=== PATIENT | female | born 1970 | race Caucasian/White ===

== ENCOUNTER 2020-07-30 06:25 | Day surgery (SDC) | payer BC ==
[~2020-07-30] VITALS: Ht 152.4 cm; Wt 65.0 kg
--- NOTE | ~2020-07-30 | OR ---
[facility] [address] [place], [place] [address] Draft DATE OF OPERATION: 07/30/2020 SURGEON: Casi Plummer MD PREOPERATIVE DIAGNOSIS: Colon screening. POSTOPERATIVE DIAGNOSIS: Small polyp of ascending colon. PROCEDURE: Total colonoscopy to cecum with cold morcellation polypectomy x1. ANESTHESIA: Intravenous sedation, fentanyl 200 mcg and Versed 12 mg. INDICATION: This 50-year-old white woman is a patient of Dr. Mitchell. She has hypothyroidism, which was apparently difficult to replete currently, but is referred for screening colonoscopy at this time. She is clinically euthyroid. She has never had colonoscopy in the past. She has no family history of colon cancer that she is aware of. She is symptom-free. The risks of bleeding, infection, and perforation related to colonoscopy was reviewed with her. She understands and wished to proceed. FINDINGS: The colon was somewhat redundant and difficult to pass ultimately to the cecum, but it was accomplished. She had an excellent prep. The only finding of note was a small polyp of the right colon, which was excised with cold morcellation technique. DESCRIPTION OF PROCEDURE: The patient was brought to the endoscopy suite and placed in lateral decubitus position given intravenous sedation to the point of slurred speech and nystagmus. Digital rectal examination was normal. An Olympus video colonoscope was passed in the rectum and manipulated throughout the colon. Passage beyond the transverse and hepatic flexure was challenging. Abdominal wall stabilization was used not to therefore, she was placed in the supine position. This allowed for passage of the scope ultimately to the cecum with good visualization of the ileocecal valve and appendiceal orifice. The scope was withdrawn and a few cm from the ileocecal valve, there was a small probably adenomatous polyp. PATIENT NAME: MYRNA CAVAZOS OPERATIVE REPORT DATE OF : [birth year] REPORT #: [id number] PHYSICIAN: CASI PLUMMER MD PCP: NAIMA CARRERA MD REPORT IS CONFIDENTIAL AND NOT TO BE RELEASED WITHOUT AUTHORIZATION [facility] [address], [place] [address] Draft This was excised with cold morcellation technique. The scope was further withdrawn and the remaining colon appeared entirely normal. Retroflexed view was normal as well. The scope was removed. The patient was taken to the recovery room in good condition. CONCLUDING DIAGNOSIS: Polyps x1. PLAN: Repeat colonoscopy in 5 years sooner if clinically indicated. She will return to the ongoing care of Dr. Mitchell and others managing her hypothyroidism at this time. MD KOLBY Caba/ESTRELLA /[id number] cc: Marcella Mitchell MD Copies: MARCELLA MITCHELL MD ~ PATIENT NAME: MYRNA CAVAZOS BELLA OPERATIVE REPORT DATE OF : [birth year] REPORT #: [id number] PHYSICIAN: CASI PLUMMER MD PCP: NAIMA CARRERA MD REPORT IS CONFIDENTIAL AND NOT TO BE RELEASED WITHOUT AUTHORIZATION
[~2020-07-30 06:25] MED LIST: ARMOUR THYROID60 MG PO; ESTRACE0.5 MG PO; LEVOTHYROXINE0.5 GM MISC; PROGESTERONE200 MG PO; SYNTHROID125 MCG PO; TRAZODONE HCL100 MG PO
[2020-07-30] MEDS ORDERED: SYNTHROID50 MCG PO (06:51)
--- NOTE | 2020-07-30 08:29 | NUR ---
07/30/20 0829 Enma Mascorro 0819- PT ARRIVES TO PACU AWAKE AND TALKING. PT REPORTS 4/10 ABD CRAMPING, DENIES NAUSEA. PT EDUCATED TO ROLL TO HER LEFT SIDE AND BRING HER KNEES UP TO HELP PASS FLATUS.
--- NOTE | 2020-07-30 10:39 | NUR ---
PT TAKEN TO SCOPE .DAUGHTER TEVIN IN -CONNECTED WITH HER FIRST SCOPE FOR PT, ENCOURAGED HER TO KEEP AN EYE ON PT FOLLOWING DC. SHE ACKNOWLEDGED, ALL QUESTONS ANSWERED. GAVE BLESSING WILL FOLLOW
--- NOTE | 2020-08-02 11:37 | PATH ---
[facility] [address] [place], [place] [address] Signed SPECIMEN(S): A ASCENDING POLYP SPECIMEN SOURCE: A. ASCENDING POLYP CLINICAL HISTORY: Preop: Screening colonoscopy, family history of colon CA. Postop: Right colon polyp. MICROSCOPIC DESCRIPTION: Histologic sections of all submitted blocks are examined by light microscopy. These findings, together with the gross examination, support the pathologic diagnosis. FINAL PATHOLOGIC DIAGNOSIS: Colon, ascending, polyp, polypectomy: - Tubular adenoma. - Negative for high-grade dysplasia or malignancy. NAL:cml:C2NR GROSS DESCRIPTION: The specimen, labeled "KG," and designated on the requisition "ascending colon polypectomy," is received in formalin and consists of one fragment of pink-fisher tissue (0.3 x 0.2 x 0.2 cm). The specimen is submitted entirely in cassette (A1). AC (under the direct supervision of a pathologist) The Gross Description was prepared using a voice recognition system. The report was reviewed for accuracy; however, sound-alike word errors, addition and/or deletions may occur. If there is any question about this report, please contact Client Services. PERFORMING LABORATORY: The technical component was performed by [facility], [address] [place] [id number] (Motor Carrier Inspector: Kellie West MD; CLIA# [id number]). Professional interpretation was performed by [facility], [address] [address] (CLIA# [id number]). Diagnostician: Génesis Bishop MD Pathologist Electronically Signed 08/02/2020 PATIENT NAME: MYRNA CAVAZOS PATHOLOGY DATE OF : [birth year] REPORT #: [id number] PHYSICIAN: LUCIO PATHOLOGY PCP: NAIMA CARRERA MD REPORT IS CONFIDENTIAL AND NOT TO BE RELEASED WITHOUT AUTHORIZATION [address] [address] Signed Copies: ~ PATIENT NAME: MYRNA CAVAZOS PATHOLOGY DATE OF : [birth year] REPORT #: [id number] PHYSICIAN: IVETTEYTE PATHOLOGY PCP: NAIMA CARRERA MD REPORT IS CONFIDENTIAL AND NOT TO BE RELEASED WITHOUT AUTHORIZATION
== END 2020-07-30 09:10 | disposition home or self-care (01) ==
LOC: DS 06:25 → OPS 06:25 → DS 08:00 → OPS 08:00 → DS 08:30 → OPS 09:10
PROVIDERS: ATTEND Surgery
PROC: 0DBK8ZX Excision of Ascending Colon, Via Natural or Artificial Opening Endoscopic, Diagnostic (ICD-10-PCS; principal; 2020-07-30 06:45)
DX: Z12.11 Encounter for screening for malignant neoplasm of colon (principal); D12.2 Benign neoplasm of ascending colon; E06.3 Autoimmune thyroiditis; E03.9 Hypothyroidism, unspecified; F17.210 Nicotine dependence, cigarettes, uncomplicated; Z88.5 Allergy status to narcotic agent; Z79.890 Hormone replacement therapy; Z79.899 Other long term (current) drug therapy; Z80.0 Family history of malignant neoplasm of digestive organs
CPT/HCPCS: 99153; G0500; J2250; J3010; J7121

== ENCOUNTER 2021-09-01 07:50 | Day surgery (SDC) | payer BC ==
[~2021-09-01] VITALS: Ht 152.4 cm; Wt 53.6 kg
[~2021-09-01 07:50] MED LIST changes: +CELEXA40 MG PO; +SYNTHROID50 MCG PO
--- NOTE | 2021-09-01 11:14 | NUR ---
09/01/21 1114 Marika Moody 1045 - RECIEVED TP TO PACU WITH OPA IN PLACE, RESPIRATIONS EVEN AND UNLABORED. HERNESTO METAL FABRICATOR APPRENTICE REPORTS REACTIVE AIRWAY. 1049 - OPA REMOVED, PT COUGHS WITH GOOD EFFORT. MASK WITH O2 AT 8L IN PLACE. 1052 - SIMPLE MASK REMOVED PT MAINTIANS O2 > 90% ON ROOM AIR. SHE IS AWAKE AND TALKING.
[2021-09-01] MEDS ORDERED: IBUPROFEN600 MG PO ×2 (11:32)
[2021-09-01] MEDS ORDERED: ACETAMINOPHEN500 MG PO ×2 (11:32)
[2021-09-01] MEDS ORDERED: OXYCODON-ACETA1 EAC2 PO ×2 (11:32)
--- NOTE | 2021-09-01 11:45 | NUR ---
PATIENT BACK TO ROOM 12 FROM PACU ON . RECEIVED REPORT FROM DAKOTA ASHLEY. PATIENT IS AWAKE. VSS. RR EVEN AND UNLABORED. RATES PAIN 4/10, DECLINES MEDICATION AT THIS TIME. DENIES NAUSEA. DRESSING IS CLEAN, DRY, AND INTACT. PROVIDED PATIENT WITH WATER AND CRACKERS. BEAR HUGGER TURNED ON FOR PATIENT. MOM AND DAUGHTER AT BEDSIDE. CALL LIGHT WITHIN REACH.
--- NOTE | 2021-09-01 12:50 | NUR ---
1250-PATIENT UP TO RESTROOM WITH 1 RN ASSIST. GAIT STEADY AND TOLERATED WELL. PATIENT VOIDED 300ML. 1300-PATIENT RESTING IN BED. VSS. RR EVEN AND UNLABORED. RATES PAIN 4/10 AND DENIES NAUSEA. DRESSING IS CLEAN, DRY, AND INTACT. PROVIDED PATIENT WITH NEW WARM BLANKETS. MOM AND DAUGHTER IN ROOM. CALL LIGHT WITHIN REACH. 1310-PAIN MEDICATION GIVEN PER EMAR.
--- NOTE | 2021-09-01 14:13 | NUR ---
PATIENT RESTING IN BED. VSS. RR EVEN AND UNLABORED. RATES PAIN 2/10. DENIES NAUSEA. DRESSING IS CLEAN, DRY, AND INTACT. MOM AND DAUGHTER AT BEDSIDE. CALL LIGHT WITHIN REACH. PATIENT WOULD LIKE TO GO HOME. 1415-PATIENT TEMP BTW 99.6-100.2. DISCUSSION WITH DR. PLUMMER AND HE STATES TEMP IS FINE AND TO ENCOURAGE DEEP BREATHING.
--- NOTE | 2021-09-01 14:30 | NUR ---
PROVIDED PATIENT WITH DISCHARGE INSTRUCTIONS WITH PATIENT MOM AND DAUGHTER IN THE ROOM. PATIENT VERBALIZED UNDERSTANDING AND ALL QUESTIONS WERE ANSWERED. AGAIN DISCUSSED THE IMPORTANCE OF DEEP BREATHING AND TO CALL DR. PLUMMER WITH A FEVER OF 101. RATES PAIN 2/10. PATIENT AMBULATES TO WHELLCHAIR, GAIT STEADY. PROVIDED RIDE TO FRONT OF HOSPITAL WHERE HER DAUGHTER WAS WAITING WITH THE CAR.
--- NOTE | 2021-09-01 16:06 | NUR ---
1606-PHONE CALL FROM PATIENT'S DAUGHTER. STATES SHABANA HAS A HARD SWOLLEN AREA UP TO HER UMBILICUS. STATES THE SIZE OF A BASEBALL. STATES VERY PAINFUL. 1610-PHONE CALL TO DR. PLUMMER REGARDING THE SITUATION. DR. PLUMMER WOULD LIKE PATIENT TO COME [facility] NOW. 1611-PHONE CALL BACK TO PATIENT'S DAUGHTER WITH DR. PLUMMER'S INSTRUCTIONS. DAUGHTER STATES PATIENT IS IN PAIN AND COULD THEY LIFE FLIGHTER HER FROM [place] TO [place]. ADVISED AGAINST THIS. THE DAUGHTER STATES PATIENT HAS AMUBLANCE INSURANCE AND MAYBE THEY WILL SEND HER THAT WAY. EXPLAINED THEN SHE WOULD GO THROUGH THE ER TO DAY SURGERY BUT TO SEND PATIENT HOWEVER THEY NEEDED.
--- NOTE | 2021-09-01 21:19 | EKG ---
[facility] [address] [facility] [place], [place] [address] Signed Sinus tachycardia with frequent and consecutive premature ventricular complexes Rightward axis Abnormal ECG No previous ECGs available Confirmed by BARB NAYAK DO ([id number]) on 09/01/2021 9:19:18 PM Electronically Signed By: BARB NAYAK DO 09/01/219 PATIENT NAME: MYRNA CAVAZOS BELLA Electrocardiogram DATE OF : [birth year] PHYSICIAN: BARB NAYAK DO REPORT #: [id number] REPORT IS CONFIDENTIAL AND NOT TO BE RELEASED WITHOUT AUTHORIZATION
--- NOTE | 2021-09-02 08:33 | OR ---
[facility] [address] [place], [place] [address] Signed DATE OF OPERATION: 09/01/2021 SURGEON: Casi Plummer MD PREOPERATIVE DIAGNOSIS: Left inguinal hernia. POSTOPERATIVE DIAGNOSIS: Left indirect inguinal hernia with attenuated floor. PROCEDURE: Left inguinal hernia repair including excision and ligation of indirect hernia sac and closure of floor with interrupted suture. ANESTHESIA: General endotracheal, Dean Abby, ENDS DOWN CHECKER and local 10 mL of 0.25% Marcaine with epinephrine. INDICATIONS: This 51-year-old white woman is a patient of Dr. Marcella Mitchell, was noted to have increasing pain in the left groin. Evaluation included an ultrasound with and without Valsalva maneuver, which demonstrated a hernia with herniation of bowel and straining. She has had exquisite amount of pain related to this. The patient did have episodic chronic cough previously, which is largely resolved, but she continues to smoke five cigarettes a day at least. Additionally, she has had constipation. Notably, she underwent colonoscopy by me about a year ago. She is admitted at this time to undergo repair of the symptomatic left inguinal hernia. She understands the risks of bleeding, infection, recurrence, and so on. FINDINGS: The ilioinguinal nerve was well identified and completely preserved. Attenuated fibers of the cord remnant were excised. She had a relatively small, but elongated indirect hernia sac, which was opened and had no evidence of sliding component associated with it, this was ligated and excised. The floor was quite attenuated, though there was no direct hernia proper. Closure of the floor was undertaken without use of mesh implantation, suturing the tendon of the transversus abdominis to the shelving edge of Poupart ligament (inguinal ligament) with interrupted 0-silk suture. DESCRIPTION OF PROCEDURE: Electronically Signed By: CASI PLUMMER MD 09/02/21 0833 PATIENT NAME: MYRNA CAVAZOS OPERATIVE REPORT DATE OF : [birth year] REPORT #: [id number] PHYSICIAN: CASI PLUMMER MD PCP: OTHER PCP REPORT IS CONFIDENTIAL AND NOT TO BE RELEASED WITHOUT AUTHORIZATION [facility] [address] [place], [place] [address] Signed The patient was brought to the operating room, given a general endotracheal anesthetic. Preoperative antibiotic Ancef was given. Sequential compression device stockings were used. The lower abdomen was prepared with a chlorhexidine solution and draped sterilely. A small incision was made cephalad to the left pubic tubercle. Dissection carried through the subcutaneous tissue identifying the external oblique. This was incised along its fibers revealing the underlying cord remnant including an ilioinguinal nerve. This was dissected free from the cord remnant with sharp dissection reflected around the lateral external oblique layer. The indirect hernia sac was easily identified in association with the atretic fibers of the cord remnant. The cord remnant and hernia sac were dissected free and mobilized proximally. The hernia sac was incised. There was no evidence of incarcerated hollow viscus nor a sliding component. The hernia sac remnant was secured at its neck with two separate interrupted 2-0 silk sutures and amputated and passed for pathology. The floor of the canal was attenuated and weak, but not frankly herniated. Consideration was made for implantation of mesh, but it seemed a bit excessive under the circumstances. On that basis, a conventional Bassini type repair was undertaken, securing the tendon of the transversus abdominis to the shelving edge of the inguinal ligament. Approximately 6-8 such sutures were placed completely supporting the floor. A 10 mL of 0.25% Marcaine with epinephrine was injected locally. The nerve was replaced into the canal. The external oblique reapproximated with running 2-0 Vicryl suture. Gilmer layer was reapproximated with interrupted 2-0 Vicryl and skin closed with running subcuticular 3-0 Vicryl. Steri-Strips were applied as was an Acticoat dressing. The patient was ultimately extubated and later transferred to the recovery room in good condition. Blood loss was minimal. Complications were none. MD KOLBY Caba/MODL /[id number] cc: Marcella Mitchell MD Copies: MARCELLA MITCHELL MD Electronically Signed By: CASI PLUMMER MD 09/02/21 0833 PATIENT NAME: MYRNA CAVAZOS BELLA OPERATIVE REPORT DATE OF : 68 REPORT #: [id number] PHYSICIAN: CASI PLUMMER MD PCP: OTHER PCP REPORT IS CONFIDENTIAL AND NOT TO BE RELEASED WITHOUT AUTHORIZATION [facility] [address] [place] [address] Signed ~ Electronically Signed By: CASI PLUMMER MD 09/02/21 0833 PATIENT NAME: CAVAZOSMYRNA OPERATIVE REPORT DATE OF : 68 REPORT #: [id number] PHYSICIAN: CASI PLUMMER MD PCP: OTHER PCP REPORT IS CONFIDENTIAL AND NOT TO BE RELEASED WITHOUT AUTHORIZATION
== END 2021-09-01 14:30 | disposition home or self-care (01) ==
LOC: DS 07:50
PROVIDERS: ATTEND Surgery
PROC: 0YQ60ZZ Repair Left Inguinal Region, Open Approach (ICD-10-PCS; principal; 2021-09-01 09:00)
DX: K40.90 Unilateral inguinal hernia, without obstruction or gangrene, not specified as recurrent (principal); F17.210 Nicotine dependence, cigarettes, uncomplicated; R05.3 Chronic cough; Z86.010 Personal history of colon polyps
CPT/HCPCS: 93005; 93010; J0690; J1100; J1644; J1790; J1885; J2001; J2250; J2405; J2704; J3010; J7121

== ENCOUNTER 2021-09-01 18:27 | Observation (INO) | payer BC ==
[~2021-09-01] VITALS: Ht 152.4 cm; Wt 53.5 kg
[~2021-09-01 18:27] MED LIST changes: +ACETAMINOPHEN500 MG PO; +IBUPROFEN600 MG PO; +OXYCODON-ACETA1 EAC2 PO
--- OUTSIDE RECORDS SUMMARY | 2021-09-01 18:30 | XMS ---
PreManage Notification: MYRNA CAVAZOS Security [employer]ster Events No recent Security Events currently on file CRITERIA MET - [facility] - 2 Visits in 30 Days CARE PROVIDERS NAIMA CARRERA [facility] Current PHONE: Unknown TERESITA READ Physician Current PHONE: [phone] Archana has no Care Guidelines for this patient. EGriselda VIS[facility] COUNT (12 MO.) 3 [facility] [address] [place] [address] TOTAL 4 NOTE: Visits indicate total known visits. ED/UCC VISIT TRACKING (12 MO.) 09/01/2021 18:28 [facility] TYPE: Emergency COMPLAINT: - POST OP PROBLEM 09/01/2021 16:24 [facility] [place] [facility] Emergency 08/15/2021 18:14 [facility] [place] [facility]: Emergency COMPLAINT: - pain DIAGNOSES: - Other custodial (current) drug therapy - Hypothyroidism, unspecified - Arthrodesis status - Tobacco use - Localized enlarged lymph nodes - Pelvic and perineal pain - Allergy status to narcotic agent - Autoimmune thyroiditis 12/12/2020 12:01 [facility] [place] [facility] [place] TYPE: Emergency COMPLAINT: - dizziness and nausea DIAGNOSES: - Other specified anxiety disorders - Tachycardia, unspecified - Nicotine dependence, unspecified, uncomplicated - Other chest pain - Other buttermaker helper (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
--- NOTE | 2021-09-01 20:30 | NUR ---
09/01/212029 Jluis Leigh REORIENTED TO TIME AND SITUATION. DENIES NAUSEA, RATES PAIN 12/01.
--- NOTE | 2021-09-01 21:19 | NUR ---
[facility] VS TAKEN AND RR IS EVEN AND NONLABORED. FAMILY IS TAKING TURNS VISITING PT AT THIS TIME SO THEY CAN GO HOME. WILL RETURN LATER FOR COMPLETION OF HX. PT GIVEN ICE CHIPS AND WATER. PT NAUSEOUS AT THIS TIME, ADVISED PT TO GO EASY ON THE WATER. CARPENTER INSPECTOR SPOKE WITH DR PLUMMER TO GET PRN ZOFRAN AND BENADRYL FOR PT AND HE ENTERED ORDERS. PT DENIES FURTHER NEEDS AT THIS TIME. CALL LIGHT IS CLOSE.
--- NOTE | 2021-09-01 21:45 | NUR ---
2104 - ARRIVED TO FLOOR FROM PACU, AWAKE, ALERT AND ORIENTED, ROOM AIR 2114 - PT C/O ITCHING AND FEELING NAUSEATED, ICE CHIPS GIVEN, DR PLUMMER NOTIFIED VIA PHONE BY ADMINISTRATIVE MANAGER, NEW ORDERS FOR 1X PO BENADRYL RECEIVED, ZOFRAN, PT RECEIVED ZOFRAN DURING SURGERY. NO FURTHER C/O. TOLERATING ICE CHIPS. NO EMESIS. 2138 - MEDICATED WITH BENADRYL AND TYLENOL 1000MG SCHEDULED. ALERT AND ORIENTED, ABD TENDER, FIRM, OPTICOT IN PLACE, COLEEN WITH SANGUINEOUS DRAINAGE. WILL COMPLETE ADMIT ASSESSMENT ONCE FAMILY LEAVES AT HER REQUESTS. PARTIAL ADMIT QUESTIONARY COMPLETED. IVF INFUSING.
--- NOTE | 2021-09-01 22:16 | NUR ---
Up to bsc, voided, back to bed, completed assessment. on room air, clear lungs, abd firm tender, lisa, passed michael. L abd opticot covered with opsite, demetrius in place, patent. IVF infusing w/o problems, second set of vitals completed, afebrile, CPOX in place post op, alert and oriented. continues to c/o mild skin itching. received Benadryl earlier, tolerated QS liquids and ice chips, no further c/o emesis or feeling nauseated. warm blanket for lower body and cold wet towel for forehead
--- NOTE | 2021-09-02 00:43 | NUR ---
DR PLUMMER NOTIFIED VIA PHONE R/T PTS C/O INCREASED ITCHING. NEW ORDERS TO GIVE BENADRYL 25MG IVQ6H PRN OBTAINED. PT NOTIFIED,
--- NOTE | 2021-09-02 01:15 | NUR ---
CALL LIGHT ANSWERED, pt ASSISTED SBA FROM BED TO BSC, STEADY ON FEET. COLEEN DRAIN EMPTIED, 40MLS OUTPUT NOTED. SANGUINEOUS IN COLOR. SCD'S OFF PER pt REQUEST D/T ITCHING. PRIMARY RN DAVE IN ROOM.
--- NOTE | 2021-09-02 01:22 | NUR ---
Up to bsc, voided, tolerated well, back to bed. COLEEN patent, L abd dressing intact with old drainage. IVF infusing. Dry toweling of skin done as per pts requests to reduce itching. was medicated with Benadryl 25mg IV per itching, no c/o pain . IVf infusing w/o problems. site intact. pt "Im just itching " stated. cold towel to forehead, fan given at requests, on at bedside, fresh ice chips and fluids, call light at hands reach. no emesis.
--- NOTE | 2021-09-02 04:34 | NUR ---
Up to br, voided back to bed, tolerated well, on room air, cpox at bedside, IVF infusing w/o problems. L abd dressing with old drainage, abd tender slight distention, increaed burping, had passed gas earlier. COLEEN with old drainage at insertion site. drainig sangineous drainage. pt instructed on how to empty Coleen, continue to reinforce teaching. SCDS in place. continues to c/o itching, but more mild, dry rubbing of skin with towel at her requests, warm blanket, fresh ice and ice water given.
--- NOTE | 2021-09-02 06:09 | NUR ---
pT HAD SURGERY 09/01 FOR l INGUINAL HERNIA HEMATOMA EVACUATION. L ABD INCISION COVERED WITH OPTICOT AND OPSITE, OLD DRAINAGE. COLEEN WITH OLD DRAINAGE AT INSERTION SITE, DRAINING DARK SANGUINEOUS DRAINAGE, TEACHING DONE PT IS TO BE DC WITH COLEEN INSITE. RECEPTIVE, CONT TO REINFORCE TEACHNG AND CARE. ABD TENDER DISTENDED, INCREASED ORAL BURPING AND DID PASSES GAS AT BEGINING OF SHIFT, NONE SINCE THEN. NO BM. UP TO BSC VOIDING QS. WALKED TO BR, TOLERATED WELL. IVF INFUSING W/O PROBLEMS LA. POST OP CPOX IN PLACE, BRADYCHARDIC AT BAGINING OF SHIFT. CURRENTLY PULSE 70'S, IRREGULAR RHYTHM. DENIES MURMUR OR HEART PROBLEMS. C/O INCREASED ITCHING SINCE RETURNING FROM SURGERY, WAS MEDICATED WITH BENADRYL PO AND IV, SEMI EFFECTIVE. HAS BEEN MEDICATED WITH MORPHINE, SCHEDULED TYLENOL AND PERCOCET, TEACHING DONE R/T TYLENOL CONTENT AND CONSTIPATION, STATED UNDERSTANDING. TOLERATING LARGE AMOUNTS OF FLUIDS AND ICE CHIPS, NO EMESIS. VERY ANXIOUS AND FEARFUL ON ADMISSION, REASSURED, ALL PROCEDURES EXPLAINED, CALMER. COOPERATIVE, ALERT AND ORIENTED. ENCOURAGE AMBULATION, MAY BE DC TO HOME IN [place] TODAY.
--- NOTE | 2021-09-02 07:04 | NUR ---
demetrius drained 145cc sanguineous drainage. teaching done with pt, stated understanding. continue to reinforce teaching. medicated with Benadryl 25mg IV per itching. currenlty awake, talking to family members via phone
--- NOTE | 2021-09-02 07:22 | NUR ---
THIS RN RECEIVED REPORT FROM DAVE ASHLEY. QUYEN ENRIQUE IN PTS ROOM TO ASSIST PT TO RESTROOM AT THIS TIME.
--- NOTE | 2021-09-02 07:40 | NUR ---
THIS RN IN PTS ROOM PER PT REQUEST DUE TO IV BEEPING- DISTAL OCCLUSION. THIS RN RESTARTED FLUIDS. PT STATES THAT SHE IS HAVING TROUBLE WITH GAS- THIS RN ABLE TO SET A PLAN WITH PT TO GET UP AND WALK.
--- NOTE | 2021-09-02 08:15 | NUR ---
THIS RN IN PTS ROOM TO GIVE PT MORNING MEDS AND ASSIT PT WITH WALKING. PT TOLERATING WALKING WELL, PT DOES STATE THAT SHE DOES HAVE SOME PAIN WITH WALKING AND SOME DIZZINESS BUT NO ALTERATIONS TO HER AMBULATION AT THIS TIME. THIS RN GOT PT UP TO CHAIR WITH JELLO AND BREAKFAST ORDERED. PT STATES PAIN IS 8/10, BUT ATTRIBUTES THIS TO GAS, PT STATES THAT SHE HOPES WALKING WILL HELP.
--- NOTE | 2021-09-02 08:33 | HP ---
[facility] [address] [place], [place] [address] Signed ADMISSION DATE: 09/01/2021 TIME: 7 p.m. PROBLEM: Swelling left groin area, possible postoperative hematoma. HISTORY OF PRESENT ILLNESS: This 51-year-old white woman today in the morning underwent left inguinal hernia repair. This included ligation and division of an indirect hernia sac and primary reapproximation of the floor for reinforcement. Mesh was not implanted. She did perfectly well following operation, was discharged to home per the usual protocol following operation with no problem at all. Her trip back to [place] (65 miles) included her lap belt and shoulder belt as per usual. By the time she arrived in [place], she noted increasing pain in the operative site and swelling. The swelling worsened overtime and I was called about this and recommended she return to the hospital for evaluation for possible hematoma formation. This was rather surprising considering the operation was very straightforward and minimal if any blood loss was noted at the time of operation. She instead presented to the [place] Emergency Room where she was evaluated, hematocrit was found to be 41. She travelled to the hospital by personally on vehicle and now presents. She is having no shortness of breath or other particular problems. She has swelling in the left inguinal area which is worse than when she presented at the hospital in [place] she says. She has had no cough or hematemesis. It is recalled that she is a daily smoker. PHYSICAL EXAMINATION: Pleasant white woman who is visibly upset, but not toxic or hypotensive in any way. Trachea is midline. Chest shows normal respiratory excursion. Pulse is regular. Abdomen is generally soft. There is sizable swelling in the left inguinal area. There is mild ecchymosis in the inferior aspect. The area is locally tender. ASSESSMENT: This either represents a sizable hematoma or perhaps distraction of the hernia repair and herniation of bowel. It matters little because exploration will be necessary. We will plan for operative exploration and remedy of the problem most likely to include Electronically Signed By: CASI PLUMMER MD 09/02/21 0833 PATIENT NAME: MYRNA CAVAZOS HISTORY AND PHYSICAL DATE OF : 68 REPORT #: [id number] PHYSICIAN: CASI PLUMMER MD PCP: NO PRIMARY CARE PHYSICIAN REPORT IS CONFIDENTIAL AND NOT TO BE RELEASED WITHOUT AUTHORIZATION [facility] [address] [place] [address] Signed explantation of hematoma, placement of drain and other indicated procedures. If there has been a "blowout" of the repair, then implantation of mesh for repair might be advised on this occasion. The risk of bleeding, infection, and so forth were reviewed with her and her family in detail. They understand and wished to proceed. MD KOLBY Caba/ESTRELLA /[id number] cc: Marcella Mitchell MD Copies: MARCELLA MITCHELL MD ~ Electronically Signed By: CASI PLUMMER MD 09/02/21 0833 PATIENT NAME: MYRNA CAVAZOS HISTORY AND PHYSICAL DATE OF : [birth year] REPORT #: [id number] PHYSICIAN: CASI PLUMMER MD PCP: NO PRIMARY CARE PHYSICIAN REPORT IS CONFIDENTIAL AND NOT TO BE RELEASED WITHOUT AUTHORIZATION
--- NOTE | 2021-09-02 09:45 | NUR ---
THIS RN IN PTS ROOM TO DO DISCHARGE TEACHING. PT COMPLIANT WITH TEACHING. PTS DAUGHTER AND MOM IN ROOM WELL, PTS DAUGHTER ABLE TO STATE UNDERSTANGING OF TEACHING OF DRAINING THE COLEEN DRAIN. PT ABLE TO HAVE MULTIPLE LARGE FARTS WHILE THIS RN IN ROOM. PT ABLE TO STATE THAT IS IMPROVING HER PAIN QUITE A BIT. PT ABLE TO EAT AND DRINK WITH NO NAUSEA. PT HAVING ADEQUATE OUTPUT. THIS RN CALLED MD PER NURSE NOTIFY ORDER PRIOR TO DISCHARE, MD STATES PT IS GOOD TO BE DISCHARGED DUE TO REPORT GIVEN TO HIM.
--- NOTE | 2021-09-02 10:17 | NUR ---
THIS RN PROVIDED PT WITH 1 7.5 PERCOCET PRIOR TO DISCHARGE DUE TO THE LONG DRIVE HOME
--- NOTE | 2021-09-02 13:28 | OR ---
[facility] [address], [place] [address] Signed DATE OF OPERATION: 09/01/2021 SURGEON: Casi Plummer MD PREOPERATIVE DIAGNOSES: 1. Left groin hematoma (abdominal wall, inguinal area). 2. History of open left inguinal hernia repair today without implantation of mesh. POSTOPERATIVE DIAGNOSES: 1. Left groin hematoma (abdominal wall, inguinal area). 2. History of open left inguinal hernia repair today without implantation of mesh. 3. Bleeding site possibly minute arterial and vessel external oblique medially. PROCEDURE: Exploration of left groin with evacuation of hematoma, cautery and suture of punctate bleeding sites, application of Gel-Foam and fibrin glue and placement of drain. ANESTHESIA: General endotracheal, Duane Merlos CRNA INDICATIONS: This 51-year-old white woman underwent a very straightforward left inguinal hernia repair this morning. She was noted to have a small to moderate indirect hernia sac which was ligated and excised. The floor of the inguinal canal was attenuated and therefore repaired primarily with interrupted 0 silk suture without implantation of Prolene mesh. She had a perfectly normal and easy recovery prior to discharge today. It is recalled that she did have a fair amount of coughing and straining at the time of her extubation in the operating room earlier that was not considered problematic and abdominal wall stabilization was maintained during that time. She was discharged to home without problem, but by the time she reached home 65 miles away, she noted increasing pain in the left lower abdomen with swelling. She presented to the emergency room in [place] where she was found to have a rather sizable amount of swelling in the area. No sign of overt bleeding. She transferred to [place] to be received by me in the emergency room by POV. She is found to have a sizable left inguinal probable hematoma. I have recommended exploration, evacuation of hematoma, control of bleeding if still bleeding and other indicated procedures. She understands all this and wished to proceed. Electronically Signed By: CASI PLUMMER MD 09/02/21 0833 PATIENT NAME: MYRNA CAVAZOS OPERATIVE REPORT DATE OF : 68 REPORT #: [id number] PHYSICIAN: CASI PLUMMER MD PCP: NO PRIMARY CARE PHYSICIAN REPORT IS CONFIDENTIAL AND NOT TO BE RELEASED WITHOUT AUTHORIZATION [facility] [address], [place] [address] Signed FINDINGS: Indeed there was a hematoma. It was superficial to the external oblique fascia which was closed. Evacuation of clot undertaken was certainly less than 200 mL more likely 100 but in any case evacuated fully. The only sign of any active bleeding was a minute arterial blood vessel of the external oblique medially oriented, which was secured with spot cautery and additional placement of a 3-0 Vicryl suture. Marked edema of the soft tissue throughout the fatty layer superficial to the external oblique fascia was noted accounting for the dominant portion of her swelling (as is typically the case). The remaining tissues were carefully examined and cautery applied as necessary. A Gel-Foam pad was placed in the base of the wound directly over the external oblique and application of fibrin glue undertaken. Gilmer's layer was reapproximated with running 2-0 Vicryl and skin closed with running subcuticular 3-0 Vicryl. She tolerated the procedure well. DESCRIPTION OF PROCEDURE: The patient was brought to the operating room, given a general endotracheal anesthetic by rapid sequence technique. Preoperative antibiotic Ancef was given. Sequential compression device stockings were used. Steri-Strips were removed from the wound. Photograph was taken. The abdomen was prepared with a DuraPrep solution and draped sterilely. The incision was incised and as it was a rather small incision to begin with later extended to better provide exposure. Beneath the skin was moderate red clotted material which was evacuated fully and Gilmer's layer divided with scissors revealing additional clot below that layer directly over the external oblique. This clot was evacuated as well. There was no sign of rapid bleeding or obvious bleeding at that point. Irrigation was undertaken with saline and ultimately with some sterile water. With loupe magnification, one could see a single arterial vessel which was very small and emanating from the external oblique medially. This was secured easily with cautery and additionally secured with a 3-0 Vicryl. Whether this was the source of her bleeding is uncertain. Irrigation was undertaken further with sterile water and areas of soft tissue with any potential bleeding were cauterized. As is typically the case, the fatty tissue had reacted to clot with extreme edema. Irrigation was undertaken fully particularly laterally and once satisfied, there was no sign of ongoing bleeding, small amount of fibrin glue (Tisseel) was applied to the base of the wound and a Gel-Foam cut to size and placed in the area as well. Through a separate stab incision laterally, a 7 mm flat Kapil drain was placed in the area. Gilmer's layer was reapproximated with running 2-0 Vicryl suture and the skin closed with running subcuticular 3-0 Vicryl. Steri-Strips were applied as was an Acticoat dressing. Drain was attached to bulb suction. There do not appear to be ongoing bleeding at all. She was ultimately extubated without problem, having no straining or cough at the end of the procedure, tolerating the procedure well. Sponge, needle, and instrument counts were reported as correct x3. Electronically Signed By: CASI PLUMMER MD 09/02/21 0833 PATIENT NAME: MYRNA CAVAZOS OPERATIVE REPORT DATE OF : 68 REPORT #: [id number] PHYSICIAN: CASI PLUMMER MD PCP: NO PRIMARY CARE PHYSICIAN REPORT IS CONFIDENTIAL AND NOT TO BE RELEASED WITHOUT AUTHORIZATION [address] [address] Signed MD KOLBY Caba/MODL /[id number] cc: Marcella Mitchell MD Copies: MARCELLA MITCHELL MD ~ Electronically Signed By: CASI PLUMMER MD 09/02/21 0833 PATIENT NAME: MYRNA CAVAZOS OPERATIVE REPORT DATE OF : 68 REPORT #: [id number] PHYSICIAN: CASI PLUMMER MD PCP: NO PRIMARY CARE PHYSICIAN REPORT IS CONFIDENTIAL AND NOT TO BE RELEASED WITHOUT AUTHORIZATION
== END 2021-09-02 10:20 | disposition home or self-care (01) ==
LOC: ED 18:27 → MS 18:29
PROVIDERS: ADMIT Surgery; ATTEND Surgery
PROC: 0J980ZZ Drainage of Abdomen Subcutaneous Tissue and Fascia, Open Approach (ICD-10-PCS; principal; 2021-09-01 19:15)
DX: L76.32 Postprocedural hematoma of skin and subcutaneous tissue following other procedure (principal); Y83.8 Other surgical procedures as the cause of abnormal reaction of the patient, or of later complication, without mention of misadventure at the time of the procedure; Z88.5 Allergy status to narcotic agent; Z87.19 Personal history of other diseases of the digestive system
CPT/HCPCS: 85025; 96374; 96375; 99284-25; J0330; J0690; J1100; J1170; J1200; J2001; J2270; J2405; J2704; J2765; J3010; J7121

== ENCOUNTER 2022-04-13 06:00 | Day surgery (SDC) | payer OTHER ==
[~2022-04-13] VITALS: Ht 152.4 cm; Wt 59.1 kg
--- NOTE | 2022-04-13 08:31 | NUR ---
PT ALERT,ORIENTED AND SUPPORTED BY HER FAMILY.PT SEEMS ANXIOUS, GAVE COMFORT AND ENCOURAGEMENT. ALL QUESTIONS ASKED ANSWERED. FAMILY WILL REMAIN FOR DC. PT REQUESTED PRAYER, WILL FOLLOW NEEDED
--- NOTE | 2022-04-13 09:21 | NUR ---
04/13/22 0921 Maylin,Jeri 0902 PT ARRIVED TO PACU AND IS MOVING HER ARMS AND GRABBING AT HER FACE. RN TRYING TO REORIET PT TO PACU. VSS. 0905 O2 DECREASED TO 6L, PT MORE AWAKE AND IS REORIENTED TO PACU. PT DENIES PAIN. PT EASILY FALLS BACK TO SLEEP.
[2022-04-13] MEDS ORDERED: IBUPROFEN600 MG PO (09:22)
[2022-04-13] MEDS ORDERED: OXYCODON-ACETA1 EAC2 PO (09:23)
[2022-04-13] MEDS ORDERED: ACETAMINOPHEN500 MG PO (09:23)
--- NOTE | 2022-04-13 09:51 | NUR ---
0935-PATIENT BACK TO ROOM FROM PACU ON . RECEIVED REPORT FROM LESLY ASHLEY. PATIENT IS DROWSY. RESP EVEN AND UNLABORED. PATIENT STATES SURGICAL SITE IS TENDER WHEN MOVING LEG. STATES SHE HAS A SORE THROAT. DRESSING HAS A SMALL AMOUNT OF RED DRAINAGE ON THE MEDIAL SIDE OF ACTICOAT AND SOME DRAINAGE AROUND THE OPSITE. PROVIDED PATIENT WITH WATER. PATIENT DECLINES CRACKERS AT THIS TIME. ESTER HUGGER TURNED ON. FAMILY IN THE ROOM. CALL LIGHT WITHIN REACH. NAUSEA IMPROVED AFTER GETTING ZOFRAN IN PACU.
--- NOTE | 2022-04-13 10:41 | NUR ---
PATIENT LAYING ON RIGHT SIDE WITH EYES CLOSED. RESP EVEN AND UNLABORED. DENIES PAIN AND NAUSEA. DRESSING HAS A SMALL AMOUNT OF DRAINAGE ON THE MEDIAL SIDE AND RED DRAINAGE UNDER OPSITE. LIGHTS OFF IN THE ROOM. FAMILY AT BEDSIDE. CALL LIGHT WITHIN REACH.
--- NOTE | 2022-04-13 11:21 | NUR ---
1100-SPOKE WITH DR. PLUMMER REGARDING DRESSING LEAKING OUT OF THE OPSITE. ORDERS TO REOMVE ACTICOAT AND REPLACE WITH GAUZE AND SILK TAPE AND SHOWER IN 2 DAYS SICNE NO LONGER WATERPROOF. 1105-REMOVED OLD DRESSING, CLEANED AREA, AND APPLIED GAUZE AND TAPE. PATIENT TOLERATED WELL. STATES NO PAIN JUST A LITTLE SORE ON HER INNER LEFT THIGH. 1115-PATIENT UP TO RESTROOM WITH 1 RN ASSIST. GAIT STEADY AND TOLERATED WELL. PATEINT VOIDED 600ML. 1118-PAIENT BACK TO ROOM. HOB ELEVATED. PROVIDED PATIENT WITH APPLESAUCE. FAMILY MEMBERS IN THE ROOM. CALL LIGHT WITHIN REACH.
--- NOTE | 2022-04-13 11:48 | NUR ---
PATIENT LAYING IN BED AWAKE. RESP EVEN AND UNLABORED. STATES SHE IS HAVING CRAMPING BELOW THE SURGICAL SITE. DRESSING HAS MODERATE AMOUNT OF RED DRAINAGE ON GAUZE, WILL DISCUSS WITH DR. PLUMMER. PATIENT ANXIOUS REGARDING DRAINAGE. FAMILY IN ROOM. CALL LIGHT WITHIN REACH.
--- NOTE | 2022-04-13 12:20 | NUR ---
DR. PLUMMER INTO ROOM, PROVIDED GAUZE BOATS. DR. PLUMMER VERBALIZED WOULD BE DOING A BEDSIDE PROCEDURE TO HELP STOP THE BLEEDING. PATIENT IS HOLDING GAUZE TO AREA. FAMILY AT BEDSIDE PROVIDING PATIENT WITH EMOTIONAL SUPPORT.
--- NOTE | 2022-04-13 13:19 | NUR ---
1245-PATIENT UP TO RESTROOM WITH 1 RN ASSIST. GAIT STEADY AND TOLERATED WELL. 1248-PATIENT BACK TO ROOM. VSS. STATES SURGICAL SITE IS SORE. JUAN GRIJALVA. PATIENT ENCOURAGED TO REST. DRESSING IS CLEAN, DRY, AND INTACT. ROOM LIGHTS TURNED OFF. FAMILY WENT TO EAT LUNCH. CALL LIGHT WITHIN REACH.
--- NOTE | 2022-04-13 13:55 | NUR ---
1345-RED DRAINAGE NOTED ON THE DISTAL DRESSING. DRAINAGE WAS LEAKING OUT DOWN THE SIDE OF HER STOMACH. REINFORCED WITH GAUZE AND TAPE. DR. PLUMMER IS IN THE OR AND WILL DISCUSS WITH HIM WHEN CURRENT PROCEDURE IS COMPLETE. 1350-PATIENT UP TO RESTROOM WITH 1 RN ASSIST. TOLERATED WELL. STATES SHE IS HAVING LEFT SIDED BACK PAIN. PATIENT ABLE TO URINATE. 1355-PATIENT BACK TO BED. DRESSING CONTINUES TO HAVE RED DRAINAGE. PATEINT WOULD LIKE DAUGHTER CALLED. 1400-PHONE CALL TO DAUGHTER WITH AN UPDATE. SHE WILL BE HEADING BACK TO THE HOSPITAL.
--- NOTE | 2022-04-13 14:51 | NUR ---
dr lopez says to hang lr liter and this done wont scan.
--- NOTE | 2022-04-13 15:00 | NUR ---
1440-DR. PLUMMER AT BEDSIDE. VERBAL ORDERS GIVEN FOR MORPHINE 2MG NOW. AND TO APPLY PRESSURE TO SURGICAL SITE.
--- NOTE | 2022-04-13 15:10 | NUR ---
1500-DR. PLUMMER AT BEDSIDE. ORDERS TO CONTINUE WITH PRESSURE OR USE A SAND BAG. 1505-RED DRAINAGE NOTED ON DRESSING. CONTIUED WITH HOLDING PRESSURE. 1510-APPLIED 5LBS SAND BAG TO ABDOMEN. PATIENT C/O LEFT FLANK PAIN. CONTINUE TO REASSURE PATIENT. FAMILY AT BEDSIDE. CALL LIGHT WITHIN REACH.
--- NOTE | 2022-04-13 15:31 | NUR ---
1550-GAUZE WITH HEAVY DRAINAGE. GAUZE CHANGED AND 5 POUND SAND BAG REAPLIED.
--- NOTE | 2022-04-13 15:48 | NUR ---
1540-PATIENT UP TO RESTROOM WITH 1 RN ASSIST. TOLERATED WELL. 1543-PATIENT BACK TO ROOM AND LAYING DOWN. FAMILY IN ROOM. [address] 1545-PAIN MEDICATION GIVEN PER EMAR.
--- NOTE | 2022-04-13 15:55 | NUR ---
PATIENT RATES HER PAIN 5/10. STILL HAVING PAIN LEFT LOWER BACK. STATES "WON'T FO AWAY".
--- NOTE | 2022-04-13 16:00 | NUR ---
PAIN MEDICATION GIVEN PER EMAR.
--- NOTE | 2022-04-13 16:06 | NUR ---
PATIENT RATES PAIN 4/10. STATES STARTING TO FEEL A LITTLE BETTER. STOMACH IS SOFT. 5 LBS SAND BAG ON SURGICAL SITE. FAMILY IN ROOM. CALL WITHIN REACH.
--- NOTE | 2022-04-13 16:31 | NUR ---
1615-PATIENT RATES PAIN 4-5/10. STATES THE PAIN IS IN HER LEFT LOWER BACK AND PELVIC. CALL LIGHT WITHIN REACH.
--- NOTE | 2022-04-13 16:46 | NUR ---
1635-PATIENT NEEDS TO USE THE RESTROOM. BED BAHENA USED AND PATIENT VOIDED 250ML. 1640-PATIENT REPORTS ITCHING. VO PER CASI MCLEOD FOR BENADRYL 25MG VIA IV. 1645-BENADRYL GIVEN PER EMAR. FAMILY IN ROOM. CALL LIGHT WITHIN REACH.
--- NOTE | 2022-04-13 18:42 | NUR ---
04/13/221841 Petty Polanco 183 PATIENT INTO PACU. REPORT RECIEVED FROM SHANI LANCE. PATIENT IS DROWSY. DENIES ANY PAIN OR NAUSEA. PATIENT BREATHING EQUAL AND UNLABORED. OXYGEN MASK AT 10 LITERS. OXYGEN SATURATIONS ABOVE 95%. IVF INFUSING. SCD'S ON.
--- NOTE | 2022-04-13 19:53 | NUR ---
pt recieved to room 116 from post op, report recieved, vs reviewed, pt is hypertensive, Paulina stated doctor is aware, surgical site inspected. dressing is intact and COLEEN drain in place.
--- NOTE | 2022-04-13 23:15 | NUR ---
PT RESTING ON RIGHT SIDE, EYES ARE CLOSED,rr DEEPAND EVEN. NAD
--- NOTE | 2022-04-14 01:57 | NUR ---
pt states pain is tolorable, new iv started. states no other nedds at this time uination needs addressed
--- NOTE | 2022-04-14 07:42 | NUR ---
REPORT RECEIVED FROM NIGHT RN - PT RESTING IN BED WITH FAMILY AT BEDSIDE. RN ASSISTS PT TO BATHROOM TO VOID. INSTRUCTIONS ON LOG ROLLING AND COLEEN DRAIN CARE PROVIDED. PT DENIES FURTHER NEEDS AT THIS TIME. CALL LIGHT AND TABLE IN REACH.
--- NOTE | 2022-04-14 10:51 | NUR ---
RN IN ROOM TO ROUND ON PT - MD IN ROOM ROUNDING. PT REQUESTS PRN PAIN MEDICATION - ADMINISTERED. PT UNDERSTANDS DC PLAN AT THIS TIME. DAUGHTER AT BEDSIDE.
--- NOTE | 2022-04-14 11:10 | NUR ---
Spoke with Gracia. She states she lives in [place] in a 1 story home with 3 steps. Denies issues getting in and out of home. States she is sore, but no issues walking. She does not use any DME. 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 Plans on dc to home. Mom and daughter are present and will go home with pt and assist as needed.
--- NOTE | 2022-04-14 11:21 | NUR ---
PT AMBULATING IN HALLWAY WITH DAUGHTER
--- NOTE | 2022-04-14 12:22 | NUR ---
INQUIRED IF PT WOULD LIKE LUMBER TRIMMER BY TODAY. YES IF STILL HERE, BUT PT HOPES TO DC. GETTING READY TO AMBULATE IN HALLWAY WITH STAFF. GAVE ENCOURAGEMENT AND OFFERED PRAYER. FAMILY PRESENT.
--- NOTE | 2022-04-17 09:36 | OR ---
[facility] [address], [place] [address] Signed DATE OF OPERATION: 04/13/2022 SURGEON: Casi Plummer MD PREOPERATIVE DIAGNOSES: 1. Left groin wound hematoma. 2. Recent (a.m.) left femoral hernia repair with implantation of mesh. POSTOPERATIVE DIAGNOSES: 1. Left groin wound hematoma. 2. Recent (a.m.) left femoral hernia repair with implantation of mesh. 3. Diffuse wound bleeding. No discrete bleeder. PROCEDURES: 1. Left groin exploration with evacuation of hematoma (50-100 mL). 2. Suture ligation of soft tissue and application of Tisseel and placement of drain (7 mm flat Kapil). INDICATIONS: This 52-year-old white woman underwent a left femoral hernia repair this morning with implantation of mesh. The operation was very straightforward. There was no untoward bleeding. She did develop in the day surgery area following recovery room some minor bleeding in the medial aspect of the incision. Examination showed no severe bleeding, but she was thought to possibly have subdermal bleeding sites and therefore I performed a bedside suture ligation with 2-0 nylon in vertical mattress configuration for hemostasis. Continued observation was undertaken in the day surgery area where she was noted to have increasing swelling and although no drainage from the wound, findings highly suggestive of developing hematoma. It was not pulsatile by any means. She was considered possibly to have an intrinsic coagulopathy considering the fact she had a very similar course following left inguinal hernia repair 2 years ago. She required hematoma evacuation at that time, though there was no discrete bleeding site found nor was there significant bleeding at the time of her operation then. I have recommended wound exploration, evacuation of hematoma, placement of drain and other indicated procedures for wound bleeding and hematoma. Blood studies were obtained postoperatively including a CBC, PT and PTT (both normal) with a pending von Willebrand's panel (ristocetin factor, etc.) Electronically Signed By: CASI PLUMMER MD 04/17/22 0936 PATIENT NAME: MYRNA CAVAZOS OPERATIVE REPORT DATE OF : 68 REPORT #: [id number] PHYSICIAN: ACSI PLUMMER MD PCP: OTHER PCP REPORT IS CONFIDENTIAL AND NOT TO BE RELEASED WITHOUT AUTHORIZATION [facility] [address], [place] [address] Signed The patient and her family understand the risks of bleeding, infection, and other unforeseen complications and wished to proceed. FINDINGS: The wound was opened where a well-formed clot was noted. This was evacuated and approximately 50 mL in total was withdrawn. There was diffuse wound oozing throughout. There was no discrete bleeder. Soft tissue that had been divided was oversewn. Quite notably the previous hernia repair was intact. The femoral vein, which was well identified showed no sign of bleeding itself. Application of Tisseel (fibrin glue) to the base of the wound as well as to the soft tissue of the sidewalls was accomplished after placement of a drain into the depths of the wound. There appears to be no sign of ongoing bleeding. DESCRIPTION OF PROCEDURE: The patient was brought to the operating room, given a general LMA type anesthetic. Ancef 2 g was administered intraoperatively. The Steri-Strips of the left groin were removed and the area prepared with a Betadine based solution and draped sterilely. The dermis was incised freeing a subcuticular Vicryl suture revealing clot in the subcutaneous space. This was evacuated bluntly. The Gilmer's layer, which had been reapproximated with interrupted 2-0 Vicryl was incised freeing its sutures revealing a clot below that level as well. This was additionally scooped out. The clot extended throughout the wound and in the depths of the wound at the site of the repair. There appeared to be no discrete bleeding. The mesh was well positioned without sign of disruption and the femoral vein appeared normal as well. Irrigation was undertaken with sterile water. There was diffuse oozing of the soft tissue including laterally in the wound. These areas were oversewn with 2-0 Vicryl suture. Copious irrigation was undertaken to the point that there was no sign of ongoing bleeder. Electrocautery was used to soft tissue inferiorly and medially in those layers that had been previously divided. Notably, they were rather edematous as would be expected. Through a separate stab incision on the left, a 7 mm flat Kapil drain was placed into the wound and secured to the skin with nylon suture. The drain was elevated from the wound and application of Tisseel (fibrin glue) was undertaken to the depths of the wound in the two layers, specifically the femoral sheath layer and secondarily the subcutaneous layer after reapproximating Gilmer's layer with a single interrupted 2-0 Vicryl. There appeared to be good hemostasis. The incision was closed with a running subcuticular 3-0 Vicryl. Steri-Strips were applied as was an Acticoat dressing. The patient tolerated the procedure well. There was no untoward bleeding from the operation. BLOOD LOSS: Electronically Signed By: CASI PLUMMER MD 04/17/22 0936 PATIENT NAME: MYRNA CAVAZOS BELLA OPERATIVE REPORT DATE OF : 68 REPORT #: [id number] PHYSICIAN: CASI PLUMMER MD PCP: OTHER PCP REPORT IS CONFIDENTIAL AND NOT TO BE RELEASED WITHOUT AUTHORIZATION [facility] [address] [place] [address] Signed Dominantly that of clot measuring between 1500 mL. MD KOLBY Caba/ESTRELLA /[id number] Copies: ~ Electronically Signed By: CASI PLUMMER MD 04/17/22 0936 PATIENT NAME: MYRNA CAVAZOS BELLA OPERATIVE REPORT DATE OF : 68 REPORT #: [id number] PHYSICIAN: CASI PLUMMER MD PCP: OTHER PCP REPORT IS CONFIDENTIAL AND NOT TO BE RELEASED WITHOUT AUTHORIZATION
--- NOTE | 2022-04-17 09:36 | OR ---
[facility] [address], [place] [address] Signed DATE OF OPERATION: 04/13/2022 SURGEON: Casi Plummer MD PREOPERATIVE DIAGNOSIS: Recurrent left inguinal hernia (incarcerated). POSTOPERATIVE DIAGNOSIS: Incarcerated femoral hernia. PROCEDURE: Repair of incarcerated femoral hernia with reduction and implantation of Prolene mesh. ANESTHESIA: General endotracheal, Duane Merlos, SEARCH COORDINATOR and local Marcaine 0.25%. BLOOD LOSS: Minimal. INDICATION: This 52-year-old white woman is a patient underwent left inguinal hernia repair by me in August of 2021 without need for implantation of mesh. She was found to have an indirect hernia. The patient is a smoker and did have a fair amount of coughing postop and developed a hematoma in the groin which required drainage. She has had increasing pain in the left groin and evaluation shows what appears to be a recurrent inguinal hernia in the inferior aspect of the site of repair. I have recommended repair of what appears to be a recurrent left inguinal hernia. Examination today showed the hernia to be nonreducible. It was previously considered for possible femoral hernia, but deemed unlikely as the dominant mass was cephalad to the inguinal ligament. The patient understands the risks of the operation including but not limited to bleeding, infection, recurrence, and need for other indicated procedures. It would be anticipated implantation of mesh be undertaken. FINDINGS: Contrary to preoperative impression indeed this did represent a femoral hernia. It was incarcerated and the herniated viscus was fatty tissue--no sign of hollow viscus incarceration. Reduction required fascial transection of the "empty space" laterally a Electronically Signed By: CASI PLUMMER MD 04/17/22 0936 PATIENT NAME: MYRNA CAVAZOS OPERATIVE REPORT DATE OF : 68 REPORT #: [id number] PHYSICIAN: CASI PLUMMER MD PCP: OTHER PCP REPORT IS CONFIDENTIAL AND NOT TO BE RELEASED WITHOUT AUTHORIZATION [facility] [address], [place] [address] Signed small amount which allowed for a complete reduction of the hernia. The femoral vein was easily identified. Repair consisted of reduction of the hernia with implantation of a prolen mesh patch. There was no harm to the femoral vein or other surrounding structures, and she tolerated the procedure well. DESCRIPTION OF PROCEDURE: The patient was brought to the operating room, given a general LMA type anesthetic. It had been intended for a general endotracheal anesthetic, however, the patient's airway was far anterior and intubation was not straightforward. On that basis an LMA device was used. Preoperative antibiotic Ancef was given and sequential compression device stockings were used. The lower abdomen was palpated and despite relaxation and so forth, the hernia could not be reduced. The abdomen was then prepared with a chlorhexidine solution and draped sterilely. Consideration that this may represent a femoral hernia was made, but nevertheless the previous incision was used. Dissection was carried through the subcutaneous tissue with blunt and electrocautery dissection. Palpation of the hernia could be undertaken. This was from the surrounding subcutaneous tissue and found to emanate from below the external oblique fascia and quite clearly represented a femoral hernia. The hernia was nonreducible. It was unclear what was in the hernia sac initially. A fascial release laterally was undertaken and manipulation of the hernia sac at that point showed the herniated segment was that of properitoneal fat and not a hollow viscus. Reduction of the hernia into the properitoneal space was easily accomplished at that point. Good examination of the surrounding structures including the femoral vein, the femoral sheath and the lacunar ligament was noted. A segment of Prolene mesh was cut to an elliptical configuration and secured in an underlay technique securing the inguinal ligament cephalad with interrupted 2-0 Prolene and the inferior portion of mesh to the iliopubic tract internally. The mesh was secured close to but not encumbering the femoral vein. The mesh was essentially in an underlay technique overall. A 10 mL of 0.25% Marcaine was injected locally. There appeared to be persistent bleeding from a small branch of the femoral vein and this was oversewn with a running 6-0 Prolene vascular suture. Irrigation was undertaken. There was no sign of ongoing bleeding. Some Elbert was applied to the depths of the wound. Gilmer's layer was reapproximated with interrupted 2-0 Vicryl and the skin closed with running subcuticular 3-0 Vicryl. Steri-Strips were applied as was Acticoat dressing. The patient tolerated the procedure well. BLOOD LOSS: Minimal. Electronically Signed By: CASI PLUMMER MD 04/17/22 0936 PATIENT NAME: MYRNA CAVAZOS OPERATIVE REPORT DATE OF : 68 REPORT #: [id number] PHYSICIAN: CASI PLUMMER MD PCP: OTHER PCP REPORT IS CONFIDENTIAL AND NOT TO BE RELEASED WITHOUT AUTHORIZATION [facility] [address] [place] [id number] Signed COMPLICATIONS: None. Casi Plummer MD JM/MODL /[id number] cc: Dr. Copies: ~ Electronically Signed By: CASI PLUMMER MD 04/17/22 0936 PATIENT NAME: MACYMYRNA JO OPERATIVE REPORT DATE OF : 68 REPORT #: [id number] PHYSICIAN: CASI PLUMMER MD PCP: OTHER PCP REPORT IS CONFIDENTIAL AND NOT TO BE RELEASED WITHOUT AUTHORIZATION
--- NOTE | 2022-04-17 09:36 | CONS ---
[facility] [address], [place] [address] Signed DATE OF CONSULTATION: 04/13/2022 TIME: 2:50 p.m. PROBLEM: Left groin wound bleeding. HISTORY OF PRESENT ILLNESS: This 52-year-old white woman, underwent repair of an incarcerated left femoral hernia this morning. Her operation was at approximately 8 o'clock this morning. She had a nonreducible femoral hernia, which was reduced ultimately and repair consisted of implantation of Prolene mesh. She had noticed some bleeding in the medial aspect of the incision while under observation in the day surgery area. Most notably, she had some applesauce following her operation and was otherwise doing well. Persistent oozing of the site was noted and on that basis, I examined the wound and appeared to be bleeding in mostly the subcutaneous area and the dermis. On that basis, three interrupted horizontal mattress sutures were used to secure the skin and continued observation undertaken. Additional observation in the day surgery unit was undertaken. Since that time, she has had some more swelling and a small amount of bleeding laterally in the wound. It is notable now that she likely has some ongoing bleeding or at least developed a hematoma in the area. It is quite notable as she underwent a left inguinal hernia more than a year ago, which was complicated by immediate postoperative bleeding in the wound as well. This required opening of the wound, drainage of a hematoma, and placement of a drain. It is notable that to be on the "safe side" today, I did apply the Elbert procoagulant powder into the depths of the wound, mindful of her prior experience. She does drink 2 alcoholic drinks daily and the anti platelet effect of that is now considered more likely. PHYSICAL EXAMINATION: GENERAL: She is nontoxic and not particularly painful. CHEST: Clear. HEART: Regular. : Examination of the left groin shows no bleeding from the wound itself, but some swelling including a little bit of lateral bleeding from the incision, which was previously not present. There is no dense hematoma or ecchymosis currently. She does Electronically Signed By: CASI PLUMMER MD 04/17/22 0936 PATIENT NAME: MYRNA CAVAZOS CONSULTATION DATE OF : 68 REPORT #: [id number] PHYSICIAN: CASI PLUMMER MD PCP: OTHER PCP REPORT IS CONFIDENTIAL AND NOT TO BE RELEASED WITHOUT AUTHORIZATION [facility] [address], [place] [address] Signed complain of some left flank pain to a mild degree. ASSESSMENT: Although she may not have much in the way of ongoing bleeding, she certainly has had abnormal bleeding, particularly given the operative findings. I strongly suspect she may have an underlying coagulopathy, perhaps Von Willebrand disease or some other abnormality that may account for bleeding now twice in 2 operations. Possibly she has another source of platelet dysfunction including the effects of daily alcohol use. As the patient did have some food postoperatively and she is not having progressive serious bleeding that I can tell at the moment, I will schedule for operation within the next 2 hours and obtain lab studies in the meantime. It is notable that she had a difficult airway at the time of her operation with extremely anterior airway and ultimately used an LMA. Additional time for clearance of the stomach would be appropriate. Should it be come necessary to use only IV sedation and local versus an LMA again. Casi Plummer MD JM/MODL /[id number] Copies: ~ Electronically Signed By: CASI PLUMMER MD 04/17/22 0936 PATIENT NAME: MYRNA CAVAZOS BELLA CONSULTATION DATE OF : 68 REPORT #: [id number] PHYSICIAN: CASI PLUMMER MD PCP: OTHER PCP REPORT IS CONFIDENTIAL AND NOT TO BE RELEASED WITHOUT AUTHORIZATION
== END 2022-04-14 12:00 | disposition home or self-care (01) ==
LOC: DS 06:00 → MS 06:00 → DS 07:30 → MS 19:25 → DS 04-14 12:00
PROVIDERS: ATTEND Surgery
PROC: 0J9P00Z Drainage of Left Lower Leg Subcutaneous Tissue and Fascia with Drainage Device, Open Approach (ICD-10-PCS; 2022-04-13)
PROC: 0YU80JZ Supplement Left Femoral Region with Synthetic Substitute, Open Approach (ICD-10-PCS; principal; 2022-04-13 06:45)
DX: K41.30 Unilateral femoral hernia, with obstruction, without gangrene, not specified as recurrent (principal); G89.18 Other acute postprocedural pain; L76.32 Postprocedural hematoma of skin and subcutaneous tissue following other procedure; F17.200 Nicotine dependence, unspecified, uncomplicated; Z88.5 Allergy status to narcotic agent; I49.3 Ventricular premature depolarization; Z20.822 Contact with and (suspected) exposure to COVID-19
CPT/HCPCS: 36415; 64420; 76942; 85025; 85610; 85730; 86850; 86900; 86901; 87502; A9270; C1781; J0131; J0330; J0461; J0690; J1100; J1200; J1644; J2001; J2060; J2250; J2270; J2405; J2704; J2765; J2795; J3010; J7121; U0003

== ENCOUNTER 2025-03-10 23:07 | Emergency (ER) | payer OTHER ==
[~2025-03-10] VITALS: Ht 152.4 cm; Wt 67.0 kg
[~2025-03-10 23:07] MED LIST changes: +FLONASE ALLERG9.9 ML; +TRAMADOL HCL50 MG PO
--- OUTSIDE RECORDS SUMMARY | 2025-03-10 23:14 | XMS ---
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 [place] VISIT COUNT (12 MO.) 1 RADHA [facility] [place] TOTAL 2 NOTE: Visits indicate total known visits. ED/UCC VISIT TRACKING (12 MO.) 03/10/2025 23:08 RADHA [facility] [place] TYPE: Emergency COMPLAINT: - BLOOD PRESSURE ISSUES 03/10/2025 08:07 [facility] [place] TYPE: Emergency INPATIENT VISIT TRACKING (12 MO.) No inpatient visits to display in this time frame [email or web address]
[2025-03-11 01:21] LABS: BASOPHILS 0.6 % (0.1-1.2); EOSINOPHILS 1.3 % (0.7-5.8); HEMATOCRIT 37.7 % (34.1-44.9); HEMOGLOBIN 12.9 g/dL (11.2-15.7); MCH 32.2 PG (25.6-32.2); MCHC 34.2 g/dL (32.2-35.5); MONOCYTES 9.2 % (4.7-12.5); NEUTROPHILS 41.3 % (34.0-71.1); PLATELET COUNT 348 K/uL (182-369); RBC 4.01 M/uL (3.93-5.22)
[2025-03-11 01:39] LABS: ALBUMIN 3.6 g/dL (3.4-5.0); ALBUMIN/GLOBULIN RATIO 1.2 (1.1-2.4); ANION GAP 15.6 (7-21); BILIRUBIN, TOTAL 0.5 mg/dL (0.2-1.0); CALCIUM 8.4 mg/dL (8.5-10.1); CREATININE, SERUM 0.8 mg/dL (0.55-1.02); POTASSIUM 3.6 mmol/L (3.5-5.1); PROTEIN, TOTAL 6.6 g/dL (6.4-8.2)
[2025-03-11] MEDS ORDERED: hydroCHLOROthiazide 25 MG TAB PO ONE (02:00)
[2025-03-11] MEDS ORDERED: LACTATED RINGER'S 1,000 ML IV ONE (02:15)
[2025-03-11] MEDS ORDERED: KETOROLAC TROMETHAMINE 30 MG/ML VIAL IV ONE (02:15)
[2025-03-11] MEDS ORDERED: diphenhydrAMINE HCL 50 MG/ML VIAL IV ONE (02:15)
[2025-03-11] MEDS ORDERED: PROCHLORPERAZINE EDISYLATE 10 MG/2 ML VIAL IV ONE (02:15)
[2025-03-11 02:17] LABS: BILIRUBIN, URINE NEGATIVE (negative); BLOOD/HGB, URINE NEGATIVE (Negative); KETONE, URINE NEGATIVE (Negative); LEUK ESTERASE, URINE NEGATIVE (negative); NITRITE, URINE NEGATIVE (negative); PH, URINE 6.5 (5-7)
[2025-03-11 02:31] LABS: AMPHETAMINES, URINE NEGATIVE (NEGATIVE); BARBITURATES, URINE NEGATIVE (NEGATIVE); BENZODIAZEPINE, URINE NEGATIVE (NEGATIVE); BUPRENORPHINE, URINE NEGATIVE (NEGATIVE); CANNABINOID, URINE POSITIVE (NEGATIVE); COCAINE, URINE NEGATIVE (NEGATIVE); ECSTASY, URINE NEGATIVE (NEGATIVE); FENTANYL, URINE NEGATIVE (NEGATIVE); METHADONE, URINE NEGATIVE (NEGATIVE); OPIATES, URINE NEGATIVE (NEGATIVE); OXYCODONE, URINE NEGATIVE (NEGATIVE); PHENCYCLIDINE, URINE NEGATIVE (NEGATIVE)
[2025-03-11] MEDS ORDERED: HYDROCHLOROTHIA25 MG PO (02:57)
[2025-03-11 03:17] VITALS: BP 160/88
--- NOTE | 2025-03-12 13:04 | EKG ---
[facility] [address] [place] [address] Signed Sinus bradycardia with sinus arrhythmia Otherwise normal ECG When compared with ECG of 01-SEP-2021 10:43, premature ventricular complexes are no longer present Vent. rate has decreased BY 53 BPM QT has shortened Confirmed by Curtis Mcfadden MD ([id number]) on 03/12/2025 1:04:07 PM Electronically Signed By: CURTIS MCFADDEN MD 03/12/25 1304 PATIENT NAME: MYRNA CAVAZOS BELLA Electrocardiogram DATE OF : 68 PHYSICIAN: CURTIS MCFADDEN MD REPORT #: [id number] REPORT IS CONFIDENTIAL AND NOT TO BE RELEASED WITHOUT AUTHORIZATION
== END 2025-03-11 03:18 | disposition home or self-care (01) ==
LOC: ED 23:07
PROVIDERS: Internal Medicine
DX: I16.0 Hypertensive urgency (principal); I10 Essential (primary) hypertension; G43.909 Migraine, unspecified, not intractable, without status migrainosus; Z88.5 Allergy status to narcotic agent
CPT/HCPCS: 36415; 70450; 71045; 80053; 80307; 81003; 84484; 85025; 93005; 93010; 96361; 96374; 96375; 99284-25; J0780; J1200; J1885; J7121